=== PATIENT | female | born 1970 | race Caucasian/White ===

== ENCOUNTER → 2016-09-08 | Outpatient (CLI) | payer MEDICAID ==
[~2016-09-08] MED LIST: ALEVE 220MG220 MG; AMBIEN 10MG10 MG PO; AMITRIPTYLINE H10 M1 PO; ANAPROX DS550 MG PO; ATARAX 10MG10 MG/TAB PO; CHANTIX 1MG1 MG PO; CLARITIN LIQUI-10 MG; DOXYCYCLINE 10100 MG; MOTRIN 600600 MG/TAB PO; NORCO 325 MG-51 TAB PO; NORCO 325 MG-7.1 TAB PO; PRIL40 PO; ULTRAM 50MG TAB50 MG PO; ZOFRAN 4MG T4 MG/TAB PO
== END ==
LOC: MHCPAIN 10:15
DX: G89.29 Other chronic pain (principal); M47.27 Other spondylosis with radiculopathy, lumbosacral region; M53.3 Sacrococcygeal disorders, not elsewhere classified; M96.1 Postlaminectomy syndrome, not elsewhere classified; Z87.891 Personal history of nicotine dependence
CPT/HCPCS: G0463

== ENCOUNTER → 2016-10-18 | Outpatient (CLI) | payer MEDICAID | LOC: MHCPAIN 11:08 | DX: G89.29 Other chronic pain (principal); M47.27 Other spondylosis with radiculopathy, lumbosacral region; M53.3 Sacrococcygeal disorders, not elsewhere classified; M96.1 Postlaminectomy syndrome, not elsewhere classified | CPT/HCPCS: G0463 ==

== ENCOUNTER → 2016-10-19 | Outpatient (CLI) | payer MEDICAID | LOC: MHCPAIN 13:55 | DX: M53.3 Sacrococcygeal disorders, not elsewhere classified (principal) | CPT/HCPCS: J1040; Q9967 ==

== ENCOUNTER → 2016-11-20 | Outpatient (CLI) | payer MEDICAID | LOC: MHCPAIN 10:59 | DX: G89.29 Other chronic pain (principal); M47.817 Spondylosis without myelopathy or radiculopathy, lumbosacral region; M54.16 Radiculopathy, lumbar region; M53.3 Sacrococcygeal disorders, not elsewhere classified; M96.1 Postlaminectomy syndrome, not elsewhere classified; Z87.891 Personal history of nicotine dependence | CPT/HCPCS: G0463 ==

== ENCOUNTER → 2016-12-13 | Outpatient (CLI) | payer MEDICAID | LOC: MHCPAIN 10:44 | DX: G89.29 Other chronic pain (principal); M47.817 Spondylosis without myelopathy or radiculopathy, lumbosacral region; M54.16 Radiculopathy, lumbar region; M53.3 Sacrococcygeal disorders, not elsewhere classified; M96.1 Postlaminectomy syndrome, not elsewhere classified | CPT/HCPCS: G0463 ==

== ENCOUNTER → 2016-12-14 | Outpatient (CLI) | payer MEDICAID | LOC: MHCPAIN 09:13 | DX: M53.3 Sacrococcygeal disorders, not elsewhere classified (principal); M96.1 Postlaminectomy syndrome, not elsewhere classified | CPT/HCPCS: G0260; J1040; Q9967 ==

== ENCOUNTER → 2017-01-15 | Outpatient (CLI) | payer MEDICAID | LOC: BHSO 08:58 | DX: Z01.818 Encounter for other preprocedural examination (principal) ==

== ENCOUNTER → 2017-02-28 | Outpatient (CLI) | payer MEDICAID | LOC: MHCPAIN 10:14 | DX: G89.29 Other chronic pain (principal); M47.27 Other spondylosis with radiculopathy, lumbosacral region; M53.3 Sacrococcygeal disorders, not elsewhere classified; M96.1 Postlaminectomy syndrome, not elsewhere classified; Z87.891 Personal history of nicotine dependence | CPT/HCPCS: G0463 ==

== ENCOUNTER → 2017-07-03 | Outpatient (CLI) | payer MEDICAID | LOC: MHCPAIN 15:02 | DX: G89.29 Other chronic pain (principal); M47.27 Other spondylosis with radiculopathy, lumbosacral region; M53.3 Sacrococcygeal disorders, not elsewhere classified; M96.1 Postlaminectomy syndrome, not elsewhere classified; Z87.891 Personal history of nicotine dependence | CPT/HCPCS: G0463 ==

== ENCOUNTER → 2017-08-02 | Outpatient (CLI) | payer MEDICAID | LOC: MHCPAIN 11:58 | DX: M47.27 Other spondylosis with radiculopathy, lumbosacral region (principal); M96.1 Postlaminectomy syndrome, not elsewhere classified; M99.53 Intervertebral disc stenosis of neural canal of lumbar region; Z98.1 Arthrodesis status | CPT/HCPCS: J1100; Q9967 ==

== ENCOUNTER → 2017-08-20 | Outpatient (CLI) | payer MEDICAID | LOC: MHCPAIN 12:57 | DX: G89.29 Other chronic pain (principal); M47.817 Spondylosis without myelopathy or radiculopathy, lumbosacral region; M54.16 Radiculopathy, lumbar region; M53.3 Sacrococcygeal disorders, not elsewhere classified; M96.1 Postlaminectomy syndrome, not elsewhere classified | CPT/HCPCS: G0463 ==

== ENCOUNTER → 2017-09-13 | Outpatient (CLI) | payer MEDICAID | LOC: MHCPAIN 13:03 | DX: M53.3 Sacrococcygeal disorders, not elsewhere classified (principal) | CPT/HCPCS: G0260; J1040; Q9967 ==

== ENCOUNTER → 2017-09-25 | Outpatient (CLI) | payer MEDICAID | LOC: COL.RAD 10:30 | DX: M47.812 Spondylosis without myelopathy or radiculopathy, cervical region (principal); M79.602 Pain in left arm ==

== ENCOUNTER → 2017-12-11 | Outpatient (CLI) | payer MEDICAID | LOC: COL.RAD 11-05 09:33 | DX: K21.9 Gastro-esophageal reflux disease without esophagitis (principal); K59.09 Other constipation; K58.9 Irritable bowel syndrome, unspecified | CPT/HCPCS: A9541 ==

== ENCOUNTER → 2017-12-12 | Outpatient (CLI) | payer MEDICAID | LOC: MHCPAIN 12:52 | DX: G89.29 Other chronic pain (principal); M47.817 Spondylosis without myelopathy or radiculopathy, lumbosacral region; M54.16 Radiculopathy, lumbar region; M53.3 Sacrococcygeal disorders, not elsewhere classified; M96.1 Postlaminectomy syndrome, not elsewhere classified | CPT/HCPCS: G0463 ==

== ENCOUNTER → 2018-01-14 | Outpatient (CLI) | payer MEDICAID | LOC: MHCPAIN 11:43 | DX: M53.3 Sacrococcygeal disorders, not elsewhere classified (principal); M96.1 Postlaminectomy syndrome, not elsewhere classified | CPT/HCPCS: G0260; J1040; Q9967 ==

== ENCOUNTER → 2018-04-16 | Outpatient (CLI) | payer MEDICAID | LOC: MHCPAIN 11:09 | DX: G89.29 Other chronic pain (principal); M47.817 Spondylosis without myelopathy or radiculopathy, lumbosacral region; M54.16 Radiculopathy, lumbar region; M53.3 Sacrococcygeal disorders, not elsewhere classified; M96.1 Postlaminectomy syndrome, not elsewhere classified; M50.90 Cervical disc disorder, unspecified, unspecified cervical region | CPT/HCPCS: G0463 ==

== ENCOUNTER → 2022-01-31 | Outpatient (CLI) | payer MEDICAID ==
--- NOTE | 2022-01-27 09:23 | NUR ---
LMOM WITH TIME DATE, INSTRUCTIONS AND CALL BACK NUMBER
[~2022-01-31] VITALS: Ht 167.6 cm; Wt 123.2 kg
[~2022-01-31] MED LIST changes: +AMITRIPTYLINE H50 M1 PO; +ASPIRIN E.C. 8181 MG PO; +ATARAX50 MG PO; +BALANCE B-1001 TA1 PO; +BENADRYL25 M2 PO; +CALCIUM-MAGNES1 EAC1 PO; +CARAFATE 1GM1 G PO; +COLACE 100100 MG/CAP PO; +CYMBALTA 60MG60 MG PO; +DESYREL DIVIDO150 M1 PO; +EFFEXOR 75M75 MG/TAB PO; +FISH OIL 1000MG1 CAP PO; +FLOVENT DI50 MCG/Act IH; +GAS RELIEF125 MG PO; +GINGER ROOT EX250 MG PO; +GLUCOSAMINE & C1 TAB PO; +GREEN TEA EXTR250 MG PO; +LINZESS290CAP PO; +LIORESAL20 MG PO; +LIPITOR 40MG TA40 MG PO; +OSCAL 500 TAB500 MG PO; +PERCOCET 325 MG1 TAB PO; +PHARMASSURE ZIN50 MG PO; +PROBIOTIC BLEN1 EACH PO; +SENNA-LAX8.6 MG PO; +SINGULAIR 110 MG/TAB PO; +VENTOLIN0.09 MG IH; +VITAMINC1000TA PO; +VITAMIND3 5000 PO; +XANAX 0.5MG0.5 MG PO; +[UNRECOGNIZED DRUG - OTHER] PO
[2022-01-31 11:36] VITALS: BP 125/76; PULSE 76; TEMP 97.9
[2022-01-31 12:43] VITALS: BP 138/71; PULSE 71
[2022-01-31 12:46] VITALS: BP 132/79; PULSE 83
[2022-01-31 12:47] VITALS: BP 131/76; PULSE 81
[2022-01-31 12:48] VITALS: BP 126/62; PULSE 80
== END ==
LOC: COL.CARD 10:38
DX: R07.89 Other chest pain (principal); R06.00 Dyspnea, unspecified
CPT/HCPCS: A9500; J2785

== ENCOUNTER 2022-03-28 12:17 | Day surgery (SDC) | payer MEDICAID ==
[2022-03-28] VITALS (10 sets, daily range): BP systolic 104–153; BP diastolic 62–87; PULSE 64–86; TEMP 98.8
[~2022-03-28] VITALS: Ht 165.1 cm; Wt 124.0 kg
[~2022-03-28 12:17] MED LIST changes: +CALCIUM 600MG+D1 TAB PO; -CALCIUM-MAGNES1 EAC1 PO; -FLOVENT DI50 MCG/Act IH; -LIPITOR 40MG TA40 MG PO; +LIPITOR 80MG80 MG PO; +RT ADVAIR 228 DISKUS IH
[2022-03-28 13:06] LABS: HEMATOCRIT 42.8 % (37.0-47.0); HEMOGLOBIN 13.9 g/dl (12.5-16.0); MEAN CELL VOLUME 91 fl (80.0-100.0); MEAN CORPUSCULAR HEMOGLOBIN 29 pg (27-31); MEAN CORPUSCULAR HGB CONC 33 g/dl (33.0-37.0); PLATELET COUNT 269 K/mm3 (130-400); RED BLOOD COUNT 4.72 M/mm3 (4.10-5.30); REDCELL DISTRIBUTION WIDTH-CV 13.2 % (11.5-14.5)
[2022-03-28 13:13] LABS: PROTHROMBIN TIME 10.9 SECONDS (9.7-12.8)
[2022-03-28 13:16] LABS: PARTIAL THROMBOPLASTIN TIME 31.9 SECONDS (26.0-37.0)
[2022-03-28 13:23] LABS: CALCIUM 9.6 mg/dL (8.4-10.2); CREATININE, serum 0.78 mg/dL (0.57-1.11); POTASSIUM 4.3 mmol/L (3.5-4.5)
[2022-03-28] MEDS ORDERED: FLECTOR1.3% TD (14:44)
--- NOTE | 2022-03-28 15:06 | NUR ---
See merge for all medication, assessment, intervention, and vital sign times.
--- NOTE | 2022-03-28 15:46 | NUR ---
Pt back to [facility] after [facility]. Pt gcs 15, pwd, no distress. Pt updated on poc. call light in reach. TR band to rt wrist, cms intact distal. WCTM
--- NOTE | 2022-03-28 19:21 | NUR ---
Pt did well during her recovery. TR band has been deflated with no problem. cms remains intact. I have reviewed dc/fu instructions with pt who denies any questions at time of departure. Pt escorted to exit at approx 1835
== END 2022-03-28 19:25 | disposition home or self-care (01) ==
LOC: COL.CAR 12:17
PROVIDERS: Internal Medicine Interventional Cardiology
DX: I25.10 Atherosclerotic heart disease of native coronary artery without angina pectoris (principal)
CPT/HCPCS: C1769; J1644; J2250; J3010; Q9967

== ENCOUNTER → 2022-07-04 | Outpatient (CLI) | payer MEDICAID ==
[~2022-07-04] MED LIST changes: +BELBUCA150 MCG BC; +FLECTOR1.3% TD
== END ==
LOC: COL.PUL 06-20 11:20
DX: Z01.818 Encounter for other preprocedural examination (principal); I25.110 Atherosclerotic heart disease of native coronary artery with unstable angina pectoris

== ENCOUNTER → 2023-11-02 | Outpatient (CLI) | payer MEDICAID | LOC: COL.CARD 11:19 | DX: R06.83 Snoring (principal) ==